=== PATIENT | male | born 1945 | race Caucasian/White ===

== ENCOUNTER 2022-03-02 18:48 | Outpatient (REF) | payer MEDICARE, SELFPAY ==
[2022-03-02 22:18] LABS: HCT 48.1 % (40.0-50.0); HGB 15.4 g/dL (13.5-17.5); MCH 29.6 pg (27.0-33.0); MCV 93 fL (80-95); MPV 10.4 fL (8.0-11.0); Platelet Count 343 10^3/uL (130-400); RDW-SD 50.8 fL; WBC 8.62 10^3/uL (4.4-10.8)
[2022-03-02 22:35] LABS: Hemoglobin A1C 5.9 % (<5.7)
[2022-03-02 23:24] LABS: ALT 61 U/L (16-63); AST 53 U/L (15-37); Albumin 3.3 g/dL (3.4-5.0); Alkaline Phosphatase 104 U/L (46-116); Anion Gap 9.7 mmol/L (3-11); BUN 20 mg/dL (7-18); Bilirubin, Total 0.5 mg/dL (0.2-1.0); CO2 25.3 mmol/L (21.0-32.0); CREATININE 1.1 mg/dL (0.70-1.30); Calcium 8.7 mg/dL (8.5-10.1); Calculated LDL 114 mg/dL (<100); Chloride 105 mmol/L (98-107); Cholesterol 167 mg/dL (<200); Glucose 94 mg/dL (74-106); HDL Cholesterol 39 mg/dL (40-60); Potassium 4.6 mmol/L (3.5-5.1); Sodium 140 mmol/L (136-145); Total Protein 6.4 g/dL (6.4-8.2); Triglyceride 71 mg/dL (<150)
== END 2022-03-02 18:49 | disposition home or self-care (01) ==
LOC: NCHCN 18:48
PROVIDERS: Visit Provider Nurse Practitioner Family
DX: I48.91 Unspecified atrial fibrillation (principal); R73.09 Other abnormal glucose; E78.79 Other disorders of bile acid and cholesterol metabolism
CPT/HCPCS: 80053; 80061; 85027; 83036

== ENCOUNTER 2022-03-18 17:24 | Outpatient (REF) | payer MEDICARE, SELFPAY ==
[2022-03-18 16:11] LABS: Anion Gap 6.2 mmol/L (3-11); BUN 20 mg/dL (7-18); CO2 28.8 mmol/L (21.0-32.0); Chloride 102 mmol/L (98-107); Glucose 97 mg/dL (74-106); Potassium 4.7 mmol/L (3.5-5.1); Sodium 137 mmol/L (136-145)
== END 2022-03-18 17:25 | disposition home or self-care (01) ==
LOC: LBN 17:24
DX: I50.20 Unspecified systolic (congestive) heart failure (principal)
CPT/HCPCS: 80048

== ENCOUNTER 2023-03-06 18:41 | Outpatient (REF) | payer MEDICARE, SELFPAY ==
[2023-03-06 16:48] LABS: HCT 47.2 % (40.0-50.0); HGB 16.3 g/dL (13.5-17.5); MCH 30.4 pg (27.0-33.0); MCHC 34.5 % (32.0-36.0); MCV 88 fL (80-95); MPV 10.2 fL (8.0-11.0); Platelet Count 349 10^3/uL (130-400); RBC 5.36 10^6/uL (4.36-5.78); RDW 12.3 % (11.8-14.1); RDW-SD 39.9 fL; WBC 8.32 10^3/uL (4.4-10.8)
[2023-03-06 17:23] LABS: Anion Gap 10.2 mmol/L (3-11); BUN 16 mg/dL (7-18); CO2 24.8 mmol/L (21.0-32.0); CREATININE 1.2 mg/dL (0.70-1.30); Calcium 9.7 mg/dL (8.5-10.1); Chloride 103 mmol/L (98-107); Estimated GFR 63.07 (mL/min/1.73m2); Glucose 94 mg/dL (74-106); Potassium 4.6 mmol/L (3.5-5.1); Sodium 138 mmol/L (136-145)
[2023-03-06 17:25] LABS: Hemoglobin A1C 5.9 % (<5.7)
--- OUTSIDE RECORDS SUMMARY | 2023-03-06 18:53 | XMS_ITS | CCD ---
Author Name Unknown Address [address] [place] [address] [id number] Organization Unknown Address [address] [place] [address] [phone] Care Team Providers Care Bank Secrecy Act Officer Name Role Phone BISI YEH Attending Physician [phone] JESUS HEWITT Er Physician [phone] JESUS HEWITT Rounding (Secondary) Physician [phone] JES Bee Registered Nurse [phone] PAULINO Bee Registered Nurse [phone] Vital Signs Vital Sign Value Unit Date/Time Recent/Initial ? Weight Measured 174.61 lbs 02/27/2022 11:45 Ini tial VS BP Systolic 150 mmHg 02/27/2022 11:45 Initial VS BP Diastolic 97 mmHg 02/27/2022 11:45 Initia l VS Respiratory Rate 22 bpm 02/27/2022 11:45 In itial VS Heart Rate 86 bpm 02/27/2022 11:45 Initial VS O2 % BldC Oximetry 95 % 02/27/2022 11:45 Initial VS Body Temperature 36 degrees 02/27/2022 11:45 In itial VS Weight Measured 169.6 lbs 02/28/2022 06:37 Mos t Recent VS BP Systolic 139 mmHg 02/28/2022 07:42 Most Re cent VS BP Diastolic 99 mmHg 02/28/2022 07:42 Most R ecent VS Respiratory Rate 16 bpm 02/28/2022 07:[address] Recent VS Heart Rate 92 bpm 02/28/2022 07:42 Most Rec ent VS O2 % BldC Oximetry 98 % 02/28/2022 07:42 Most Recent VS Body Temperature 36.2 degrees 02/28/2022 07:[address] Recent VS Allergies Allergy Code Allergy Type Reaction Status No Known Allergies 0 No known allergies Active Procedures Unknown or Not Available. History of Immunizations Unknown or Not Available. Problems Problem Code Start Date Resolved Date Status Atrial fibrillation 61035350 Activ e Left ventricular systolic dysfunction [id number] Active Acute CHF 32235866 Active Tachycardia 8216720 02/27/2022 Resolved Pleural effusion 61532832 02/27/2022 Resolved Results BASIC METABOLIC PANEL (BMP) - Collect Date/Time: 02/28/2022 06:40 Test Name Code Test Result Test Units Test Ref Rang e GLUCOSE 2345-7 90 mg/dL L=70 H=116 BUN 3094-0 18 mg/dL L=6 H=25 CREATININE 2160-0 1.06 mg/dL L=0.67 H=1.17 SODIUM SERUM 2951-2 134 mmol/L L=136 H=145 POTASSIUM SERUM 2823-3 3.8 mmol/L L=3.4 H=5 .2 CHLORIDE SERUM 2075-0 99 mmol/L L=96 H=110 CARBON DIOXIDE (CO2) 2028-9 27 mmol/L L=22 H=34 ANION GAP 34030-6 7.9 mmol/L CALCIUM SERUM 47988-9 9.0 mg/dL L=8.2 H=10. 2 AGE 76 years eGFR (non-Afr.Amer.) 16546-9 68 mL/min eGFR (Afr-Mauritian) 21127-4 83 mL/min BNP (PRO-B NATRIURETIC PEPTI DE) - Collect Date/Time: 02/27/2022 11:40 Test Name Code Test Result Test Units Test Ref Rang e NT-proBNP 49888-4 9430.0 pg/mL L=0.0 H=125 COMPREHENSIVE METABOLIC PANE L (CMP) - Collect Date/Time: 02/27/2022 11:40 Test Name Code Test Result Test Units Test Ref Rang e GLUCOSE 2345-7 110 mg/dL L=70 H=116 BUN 3094-0 24 mg/dL L=6 H=25 CREATININE 2160-0 1.11 mg/dL L=0.67 H=1.17 SODIUM SERUM 2951-2 128 mmol/L L=136 H=145 POTASSIUM SERUM 2823-3 4.8 mmol/L L=3.4 H=5 .2 CHLORIDE SERUM 2075-0 95 mmol/L L=96 H=110 CARBON DIOXIDE (CO2) 2028-9 24 mmol/L L=22 H=34 ANION GAP 25425-0 8.8 mmol/L CALCIUM SERUM 03462-1 8.8 mg/dL L=8.2 H=10. 2 BILIRUBIN TOTAL 1975-2 0.8 mg/dL L=0.0 H=1 .3 ALK. PHOS. 6768-6 103 U/L L=46 H=116 SGOT (AST) 1920-8 63 U/L L=15 H=37 SGPT (ALT) 1742-6 64 U/L L=12 H=78 TOTAL PROTEIN 2885-2 6.6 gm/dL L=6.0 H=8.0 ALBUMIN 1751-7 3.1 gm/dL L=3.4 H=5.0 AGE 76 years eGFR (non-Afr.Amer.) 79820-6 65 mL/min eGFR (Afr-Mauritian) 58323-7 78 mL/min TROPONIN HIGH SENSITIVITY* - Collect Date/Time: 02/28/2022 06:40 Test Name Code Test Result Test Units Test Ref Rang e TROPONIN HS 28.3 pg/mL L=0.0 H=60.4 Specimen seq. Random N/A TROPONIN HIGH SENSITIVITY* - Collect Date/Time: 02/27/2022 15:00 Test Name Code Test Result Test Units Test Ref Rang e TROPONIN HS 25.5 pg/mL L=0.0 H=60.4 Specimen seq. 3 hr N/A TROPONIN HIGH SENSITIVITY* - Collect Date/Time: 02/27/2022 11:40 Test Name Code Test Result Test Units Test Ref Rang e TROPONIN HS 27.2 pg/mL L=0.0 H=60.4 Specimen seq. Random N/A CBC W/ DIFFERENTIAL* - [facility] ct Date/Time: 02/28/2022 06:40 Test Name Code Test Result Test Units Test Ref Rang e WBC 6690-2 7.84 th/cmm L=5.00 H=10.00 NEUT % 67.9 % L=40.0 H=80.0 LYMPH % 19.4 % L=10.0 H=50.0 MONO % 36958-0 9.8 % L=2.0 H=12.0 EOS % 1.7 % L=0.0 H=8.0 BASO % 0.9 % L=0.0 H=3.0 IG % 2514-8 0.3 % L=0.0 H=1.1 NRBC % 72337-6 0.0 % L=0.0 H=0.0 NEUT abs count 751-8 5.3 th/cmm L=1.6 H=8. 4 LYMPH abs count 731-0 1.5 th/cmm L=1.5 H=4 .0 MONO abs count 742-7 0.8 th/cmm L=0.2 H=1. 0 EOS abs count 711-2 0.1 th/cmm L=0.0 H=0.5 BASO abs count 704-7 0.1 th/cmm L=0.0 H=0. 2 IG abs count 98671-8 0.0 th/cmm L=0.0 H=0.1 NRBC abs count 31039-1 0.0 mil/cmm L=0.0 H=0. 0 RBC 789-8 5.05 mil/cmm L=4.30 H=6.20 HEMOGLOBIN 718-7 15.3 gm/dL L=13.0 H=17.0 HEMATOCRIT 4544-3 45 % L=45 H=52 MCV 787-2 89 fL L=82 H=92 MCH 785-6 30.3 pg L=27.0 H=31.0 MCHC 786-4 34.2 % L=32.0 H=36.0 RDW-SD 788-0 45.8 fL L=39.0 H=49.0 PLATELET COUNT 777-3 393 th/cmm L=150 H=45 0 CBC W/ DIFFERENTIAL* - [facility] Date/Time: 02/27/2022 11:40 Test Name Code Test Result Test Units Test Ref Rang e WBC 6690-2 10.93 th/cmm L=5.00 H=10.00 NEUT % 76.5 % L=40.0 H=80.0 LYMPH % 13.0 % L=10.0 H=50.0 MONO % 19416-1 8.6 % L=2.0 H=12.0 EOS % 1.0 % L=0.0 H=8.0 BASO % 0.5 % L=0.0 H=3.0 IG % 2514-8 0.4 % L=0.0 H=1.1 NRBC % 73870-4 0.0 % L=0.0 H=0.0 NEUT abs count 751-8 8.4 th/cmm L=1.6 H=8. 4 LYMPH abs count 731-0 1.4 th/cmm L=1.5 H=4 .0 MONO abs count 742-7 0.9 th/cmm L=0.2 H=1. 0 EOS abs count 711-2 0.1 th/cmm L=0.0 H=0.5 BASO abs count 704-7 0.1 th/cmm L=0.0 H=0. 2 IG abs count 00489-6 0.0 th/cmm L=0.0 H=0.1 NRBC abs count 79029-7 0.0 mil/cmm L=0.0 H=0. 0 RBC 789-8 5.33 mil/cmm L=4.30 H=6.20 HEMOGLOBIN 718-7 16.3 gm/dL L=13.0 H=17.0 HEMATOCRIT 4544-3 48 % L=45 H=52 MCV 787-2 90 fL L=82 H=92 MCH 785-6 30.6 pg L=27.0 H=31.0 MCHC 786-4 34.2 % L=32.0 H=36.0 RDW-SD 788-0 45.4 fL L=39.0 H=49.0 PLATELET COUNT 777-3 403 th/cmm L=150 H=45 0 UZMA COVID RHEONIX* - [place] ect Date/Time: 02/27/2022 15:00 Test Name Code Test Result Test Units Test Ref Rang e Tier- 05832-5 INPATIENT/ED N/A SARS COV2 RNA: 61780-2 NEGATIVE N/A REFERENCE RANGE: NEGAT Active Medications Medications Administered During Visit Medication Dose Units Frequency Route Date/Time of Last Dose FUROSEMIDE INJ SDV: 20MG/2ML 20 MG X1 IVP 02/27/2022 13:4 9 SODIUM CHLORIDE 0.9% FLUSH 10ML SYRINGE 2 ML Q8H IVP 02/28/2022 05:5 3 FUROSEMIDE INJ SDV: 20MG/2ML 20 MG BID (0800 AND 1459) IVP 02/29/20 08:24 METOPROLOL TARTRATE TABLET: 25MG 75 MG BID PO 02/28/2022 08:2 4 AZITHROMYCIN IVPB: 500MG/250ML 500 MG X1 02/27/2022 18:3 9 CefTRIAXone IVPB: 1GM/50ML 1 GM X1 02/27/2022 16:57 Encounters Encounter Diagnosis Diagnosis Code Start Date Acute on chronic systolic (congestive) heart macie adan I5023 02/27/2022 Social History Smoking Status Code Start Date End Date Former smoker [id number] Patient Decision Aids Patient Decision Aid Heart Failure Discharge Instructions You were admitted to [facility] on 02/27/2022 14:33 with a principal diagnosis of Acute on chronic systolic (congestive) heart failure You had the following tests done:BASIC METABOLIC PANEL (BMP)CBC W/ DIFFERENTIAL*TROPONIN HIGH SENSITIVITY*UZMA COVID RHEONIX*TROPONIN HIGH SENSITIVITY*BNP (PRO-B NATRIURETIC PEPTIDE)CBC W/ DIFFERENTIAL*COMPREHENSIVE METABOLIC PANEL (CMP)TROPONIN HIGH SENSITIVITY* You were discharged from [facility] on 02/28/2022 11:20 Should you have any questions prior to discharge, please contact a member of your healthcare team. If you have left the hospital and have any questions, please contact your primary care physician. Chief Complaint and Reason For Visit Chief Complaint Date of Onset CHF 02/27/2022 Function Status Description Code Date Type Status No Cognitive Impairments 90620376 Functional Active Plan of Care Unknown or Not Available. Referral/Transition of Care Unknown or Not Available.
--- OUTSIDE RECORDS SUMMARY | 2023-03-06 18:53 | XMS_ITS | CCD ---
Author Name Unknown Address [address] [place] [address] [phone] Organization Unknown Address [address] [place] [address] [id number] Care Team Providers Care Steam Oven Operator Name Role Phone BISI YEH Attending Physician [phone] WILLIAM ROSS Er Physician [phone] WILLIAM ROSS Rounding (Secondary) Physician 8 [phone] JOSE ANTONIO Zelaya Registered Nurse [phone] Vital Signs Vital Sign Value Unit Date/Time Recent/Initial ? BP Systolic 148 mmHg 02/23/2022 10:37 Initial VS BP Diastolic 130 mmHg 02/23/2022 10:37 Initia l VS Respiratory Rate 24 bpm 02/23/2022 10:37 In itial VS Heart Rate 150 bpm 02/23/2022 10:37 Initial VS O2 % BldC Oximetry 94 % 02/23/2022 10:37 Initial VS BMI (Body Mass Index) 27.15 kg/m^2 02/23/2022 10: 48 Initial VS Weight Measured 178.57 lbs 02/23/2022 10:48 Ini tial VS Height 68 in 02/23/2022 10:48 Initial VS BSA (Body Surface Area) 1.97 m^2 02/23/2022 1 0:48 Initial VS Body Temperature 36.2 degrees 02/23/2022 10:54 In itial VS Weight Measured 171.5 lbs 02/24/2022 07:45 Mos t Recent VS BP Systolic 101 mmHg 02/25/2022 11:38 Most Re cent VS BP Diastolic 77 mmHg 02/25/2022 11:38 Most R ecent VS Respiratory Rate 20 bpm 02/25/2022 11:[address] Recent VS Heart Rate 65 bpm 02/25/2022 11:38 Most Rec ent VS O2 % BldC Oximetry 98 % 02/25/2022 11:38 Most Recent VS Body Temperature 36 degrees 02/25/2022 11:[address] Recent VS Allergies Allergy Code Allergy Type Reaction Status No Known Allergies 0 No known allergies Active Procedures Unknown or Not Available. History of Immunizations Unknown or Not Available. Problems Problem Code Start Date Resolved Date Status Atrial fibrillation 62056403 Activ e Left ventricular systolic dysfunction 412735540 Active Acute CHF 72811004 Active Tachycardia 1869606 02/27/2022 Resolved Pleural effusion 60113317 02/27/2022 Resolved Results BASIC METABOLIC PANEL (BMP) - Collect Date/Time: 02/25/2022 06:10 Test Name Code Test Result Test Units Test Ref Rang e GLUCOSE 2345-7 97 mg/dL L=70 H=116 BUN 3094-0 21 mg/dL L=6 H=25 CREATININE 2160-0 1.04 mg/dL L=0.67 H=1.17 SODIUM SERUM 2951-2 133 mmol/L L=136 H=145 POTASSIUM SERUM 2823-3 4.8 mmol/L L=3.4 H=5 .2 CHLORIDE SERUM 2075-0 100 mmol/L L=96 H=110 CARBON DIOXIDE (CO2) 2028-9 25 mmol/L L=22 H=34 ANION GAP 48506-0 7.7 mmol/L CALCIUM SERUM 31341-0 8.6 mg/dL L=8.2 H=10. 2 AGE 76 years eGFR (non-Afr.Amer.) 21098-8 70 mL/min eGFR (Afr-Barbadian) 75689-9 84 mL/min BASIC METABOLIC PANEL (BMP) - Collect Date/Time: 02/24/2022 06:50 Test Name Code Test Result Test Units Test Ref Rang e GLUCOSE 2345-7 133 mg/dL L=70 H=116 BUN 3094-0 24 mg/dL L=6 H=25 CREATININE 2160-0 1.26 mg/dL L=0.67 H=1.17 SODIUM SERUM 2951-2 133 mmol/L L=136 H=145 POTASSIUM SERUM 2823-3 4.6 mmol/L L=3.4 H=5 .2 CHLORIDE SERUM 2075-0 99 mmol/L L=96 H=110 CARBON DIOXIDE (CO2) 2028-9 24 mmol/L L=22 H=34 ANION GAP 44674-4 10.5 mmol/L CALCIUM SERUM 39846-0 9.2 mg/dL L=8.2 H=10. 2 AGE 76 years eGFR (non-Afr.Amer.) 72727-7 56 mL/min eGFR (Afr-Barbadian) 72660-6 68 mL/min COMPREHENSIVE METABOLIC PANE L (CMP) - Collect Date/Time: 02/23/2022 11:00 Test Name Code Test Result Test Units Test Ref Rang e GLUCOSE 2345-7 117 mg/dL L=70 H=116 BUN 3094-0 21 mg/dL L=6 H=25 CREATININE 2160-0 1.03 mg/dL L=0.67 H=1.17 SODIUM SERUM 2951-2 136 mmol/L L=136 H=145 POTASSIUM SERUM 2823-3 4.7 mmol/L L=3.4 H=5 .2 CHLORIDE SERUM 2075-0 100 mmol/L L=96 H=110 CARBON DIOXIDE (CO2) 2028-9 23 mmol/L L=22 H=34 ANION GAP 46491-7 12.9 mmol/L CALCIUM SERUM 63813-6 9.5 mg/dL L=8.2 H=10. 2 BILIRUBIN TOTAL 1975-2 0.9 mg/dL L=0.0 H=1 .3 ALK. PHOS. 6768-6 109 U/L L=46 H=116 SGOT (AST) 1920-8 46 U/L L=15 H=37 SGPT (ALT) 1742-6 52 U/L L=12 H=78 TOTAL PROTEIN 2885-2 7.6 gm/dL L=6.0 H=8.0 ALBUMIN 1751-7 3.5 gm/dL L=3.4 H=5.0 AGE 76 years eGFR (non-Afr.Amer.) 88190-6 71 mL/min eGFR (Afr-Barbadian) 48989-1 85 mL/min TROPONIN HIGH SENSITIVITY* - Collect Date/Time: 02/23/2022 11:00 Test Name Code Test Result Test Units Test Ref Rang e TROPONIN HS 48.6 pg/mL L=0.0 H=60.4 Specimen seq. Random N/A TSH THYROID STIMULATING HORM ONE* - Collect Date/Time: 02/24/2022 06:50 Test Name Code Test Result Test Units Test Ref Rang e TSH 3014-8 2.855 uIU/mL L=0.360 H=3.74 0 CBC W/ DIFFERENTIAL* - [facility] ct Date/Time: 02/25/2022 06:10 Test Name Code Test Result Test Units Test Ref Rang e WBC 6690-2 8.18 th/cmm L=5.00 H=10.00 NEUT % 67.8 % L=40.0 H=80.0 LYMPH % 20.8 % L=10.0 H=50.0 MONO % 33305-7 9.2 % L=2.0 H=12.0 EOS % 1.5 % L=0.0 H=8.0 BASO % 0.6 % L=0.0 H=3.0 IG % 2514-8 0.1 % L=0.0 H=1.1 NRBC % 50837-2 0.0 % L=0.0 H=0.0 NEUT abs count 751-8 5.6 th/cmm L=1.6 H=8. 4 LYMPH abs count 731-0 1.7 th/cmm L=1.5 H=4 .0 MONO abs count 742-7 0.8 th/cmm L=0.2 H=1. 0 EOS abs count 711-2 0.1 th/cmm L=0.0 H=0.5 BASO abs count 704-7 0.1 th/cmm L=0.0 H=0. 2 IG abs count 81373-5 0.0 th/cmm L=0.0 H=0.1 NRBC abs count 75171-0 0.0 mil/cmm L=0.0 H=0. 0 RBC 789-8 4.95 mil/cmm L=4.30 H=6.20 HEMOGLOBIN 718-7 15.0 gm/dL L=13.0 H=17.0 HEMATOCRIT 4544-3 44 % L=45 H=52 MCV 787-2 90 fL L=82 H=92 MCH 785-6 30.3 pg L=27.0 H=31.0 MCHC 786-4 33.8 % L=32.0 H=36.0 RDW-SD 788-0 46.2 fL L=39.0 H=49.0 PLATELET COUNT 777-3 384 th/cmm L=150 H=45 0 CBC W/ DIFFERENTIAL* - [facility] ct Date/Time: 02/24/2022 06:50 Test Name Code Test Result Test Units Test Ref Rang e WBC 6690-2 8.00 th/cmm L=5.00 H=10.00 NEUT % 66.6 % L=40.0 H=80.0 LYMPH % 21.8 % L=10.0 H=50.0 MONO % 98926-8 9.1 % L=2.0 H=12.0 EOS % 1.3 % L=0.0 H=8.0 BASO % 0.8 % L=0.0 H=3.0 IG % 2514-8 0.4 % L=0.0 H=1.1 NRBC % 35391-6 0.0 % L=0.0 H=0.0 NEUT abs count 751-8 5.3 th/cmm L=1.6 H=8. 4 LYMPH abs count 731-0 1.7 th/cmm L=1.5 H=4 .0 MONO abs count 742-7 0.7 th/cmm L=0.2 H=1. 0 EOS abs count 711-2 0.1 th/cmm L=0.0 H=0.5 BASO abs count 704-7 0.1 th/cmm L=0.0 H=0. 2 IG abs count 68872-0 0.0 th/cmm L=0.0 H=0.1 NRBC abs count 91230-6 0.0 mil/cmm L=0.0 H=0. 0 RBC 789-8 4.97 mil/cmm L=4.30 H=6.20 HEMOGLOBIN 718-7 15.2 gm/dL L=13.0 H=17.0 HEMATOCRIT 4544-3 44 % L=45 H=52 MCV 787-2 89 fL L=82 H=92 MCH 785-6 30.6 pg L=27.0 H=31.0 MCHC 786-4 34.2 % L=32.0 H=36.0 RDW-SD 788-0 46.5 fL L=39.0 H=49.0 PLATELET COUNT 777-3 389 th/cmm L=150 H=45 0 CBC W/ DIFFERENTIAL* - [facility] ct Date/Time: 02/23/2022 11:00 Test Name Code Test Result Test Units Test Ref Rang e WBC 6690-2 9.55 th/cmm L=5.00 H=10.00 NEUT % 76.9 % L=40.0 H=80.0 LYMPH % 14.0 % L=10.0 H=50.0 MONO % 03529-0 7.3 % L=2.0 H=12.0 EOS % 0.9 % L=0.0 H=8.0 BASO % 0.6 % L=0.0 H=3.0 IG % 2514-8 0.3 % L=0.0 H=1.1 NRBC % 53777-0 0.0 % L=0.0 H=0.0 NEUT abs count 751-8 7.3 th/cmm L=1.6 H=8. 4 LYMPH abs count 731-0 1.3 th/cmm L=1.5 H=4 .0 MONO abs count 742-7 0.7 th/cmm L=0.2 H=1. 0 EOS abs count 711-2 0.1 th/cmm L=0.0 H=0.5 BASO abs count 704-7 0.1 th/cmm L=0.0 H=0. 2 IG abs count 08945-9 0.0 th/cmm L=0.0 H=0.1 NRBC abs count 58643-2 0.0 mil/cmm L=0.0 H=0. 0 RBC 789-8 5.29 mil/cmm L=4.30 H=6.20 HEMOGLOBIN 718-7 16.1 gm/dL L=13.0 H=17.0 HEMATOCRIT 4544-3 48 % L=45 H=52 MCV 787-2 90 fL L=82 H=92 MCH 785-6 30.4 pg L=27.0 H=31.0 MCHC 786-4 33.8 % L=32.0 H=36.0 RDW-SD 788-0 47.4 fL L=39.0 H=49.0 PLATELET COUNT 777-3 395 th/cmm L=150 H=45 0 PT PROTHROMBIN TIME* - [facility] ct Date/Time: 02/23/2022 12:05 Test Name Code Test Result Test Units Test Ref Rang rene PROTIME 5902-2 11.4 seconds L=9.3 H=11.4 INR 91894-1 1.15 L=2.00 H=3.00 PTT PARTIAL THROMBOPLASTIN T ANG* - Collect Date/Time: 02/23/2022 12:05 Test Name Code Test Result Test Units Test Ref Rang e PTT 84003-5 24 seconds L=24 H=32 Active Medications Medications Administered During Visit Medication Dose Units Frequency Route Date/Time of Last Dose DILTIAZEM INJ SDV: 25MG/5ML 10 MG X1 IV P 02/23/2022 11:17 DILTIAZEM DRIP IN NS: 1MG/1ML 10 MG CONT 02/23/2022 11:18 SODIUM CHLORIDE 0.9% FLUSH 1 0ML SYRINGE 2 ML Q8H IVP 02/24/2022 13:3 9 DOCUSATE SODIUM CAPSULE: 100MG 100 MG BID PO 02/24/2022 07:36 METOPROLOL TARTRATE TABLET: 25MG 25 MG X1 PO 02/23/2022 19:00 RIVAROXABAN TAB: 10MG 20 MG Q5PM PO 02/25/2022 16:00 FUROSEMIDE INJ SDV: 20MG/2ML 20 MG X1 I PHYSICIAN UNDERWRITER 02/23/2022 22:38 LORazepam TABLET: 0.5MG 0.5 MG PRN Q6H PO 02/24/2022 21:54 RIVAROXABAN TAB: 10MG 20 MG X1 PO 02/23/2022 23:27 METOPROLOL SUCCINATE TABLET ER: 25MG 25 MG DAILY PO 02/24/2022 07:3 6 METOPROLOL TARTRATE TABLET: 25MG 25 MG X1 PO 02/24/2022 01:16 METOPROLOL TARTRATE INJ SDV: 5MG/5ML 2.5 MG PRN Q4H IVP 02/24/2022 05:2 8 METOPROLOL SUCCINATE TABLET ER: 25MG 25 MG X1 PO 02/24/2022 08:5 2 METOPROLOL TARTRATE INJ SDV: 5MG/5ML 5 MG X1 IVP 02/24/2022 08:5 2 METOPROLOL TARTRATE TABLET: 25MG 25 MG X1 PO 02/24/2022 12:54 METOPROLOL TARTRATE INJ SDV: 5MG/5ML 5 MG X1 IVP 02/24/2022 12:5 4 DIGOXIN INJ AMPULE: 0.5MG/2ML 0.5 MG X1 IVP 02/24/2022 16:51 METOPROLOL TARTRATE TABLET: 25MG 75 MG BID PO 02/25/2022 16:00 Encounters Encounter Diagnosis Diagnosis Code Start Date Chronic atrial fibrillation, unspecified I4820 02/24/2022 Social History Smoking Status Code Start Date End Date Former smoker [id number] Patient Decision Aids Unknown or Not Available. Discharge Instructions You were admitted to [facility] on 02/24/2022 14:35 with a principal diagnosis of Specified Heart Arrhythmias You had the following tests done:BASIC METABOLIC PANEL (BMP)CBC W/ DIFFERENTIAL*BASIC METABOLIC PANEL (BMP)CBC W/ DIFFERENTIAL*TSH THYROID STIMULATING HORMONE*PT PROTHROMBIN TIME*PTT PARTIAL THROMBOPLASTIN TIME*CBC W/ DIFFERENTIAL*COMPREHENSIVE METABOLIC PANEL (CMP)TROPONIN HIGH SENSITIVITY* You were discharged from [facility] on 02/25/2022 15:55 Should you have any questions prior to discharge, please contact a member of your healthcare team. If you have left the hospital and have any questions, please contact your primary care physician. Chief Complaint and Reason For Visit Chief Complaint Date of Onset ATRIAL FIBRILLATION 02/23/2022 Function Status Description Code Date Type Status No Cognitive Impairments 80912213 Functional Active Plan of Care Unknown or Not Available. Referral/Transition of Care Unknown or Not Available.
--- OUTSIDE RECORDS SUMMARY | 2023-03-06 18:53 | XMS_ITS | CCD ---
Author Name Unknown Address [address] [place] [address] [phone] Organization Unknown Address [address] [place] [address] [phone] Care Team Providers Care Postmaster Relief Name Role Phone ANA MENA Attending Physician [phone] ANA MENA Rounding (Secondary) Physician [phone] Vital Signs Unknown or Not Available. Allergies Allergy Code Allergy Type Reaction Status No Known Allergies 0 No known allergies Active Procedures Unknown or Not Available. History of Immunizations Unknown or Not Available. Problems Problem Code Start Date Resolved Date Status Atrial fibrillation 41954795 Activ e Left ventricular systolic dysfunction 484339641 Active Acute CHF 40240422 Active Results Unknown or Not Available. Active Medications Medication Code Dose Units Frequency Route Modificatio n Start Date/Time Furosemide 20MG Oral Tablet 965800 1 TABLET MON/WED/FRI ORAL 2021 09:27 Prescription Detail TAKE 1 TABLET ORAL MON/WED/FRI Xarelto 20MG Oral Tablet 7842833 20 MILLIGRAMS DAILY ORAL 022 09:26 Prescription Detail TAKE 20 MILLIGRAMS ORAL DAILY Metoprolol Tartrate 25MG Oral Tablet 344772 75 MILLIGRAMS TWICE A DAY ORAL 02/25 13:26 Prescription Detail TAKE 75 MILLIGRAMS ORAL TWICE A DAY Medications Administered During Visit Unknown or Not Available. Encounters Encounter Diagnosis Diagnosis Code Start Date Other persistent atrial fibrillation I4819 03/10/2022 Social History Smoking Status Code Start Date End Date Former smoker [id number] Patient Decision Aids Unknown or Not Available. Discharge Instructions You were admitted to [facility] on 03/10/2022 09:51 with a principal diagnosis of Other persistent atrial fibrillation You were discharged from [facility] on 03/10/2022 00:00 Should you have any questions prior to discharge, please contact a member of your healthcare team. If you have left the hospital and have any questions, please contact your primary care physician. Chief Complaint and Reason For Visit Unknown or Not Available. Function Status Description Code Date Type Status No Cognitive Impairments 65946225 Functional Active Plan of Care Unknown or Not Available. Referral/Transition of Care Unknown or Not Available.
--- OUTSIDE RECORDS SUMMARY | 2023-03-06 18:53 | XMS_ITS | CCD ---
Author Name Unknown Address [address] [place] [address] [phone] Organization Unknown Address [address] [place] [address] [phone] Care Team Providers Care Zigzag Machine Operator Name Role Phone BISI YEH Attending Physician [phone] WILLIAM ROSS (Secondary) Physician [phone] Vital Signs Unknown or Not Available. Allergies Allergy Code Allergy Type Reaction Status No Known Allergies 0 No known allergies Active Procedures Unknown or Not Available. History of Immunizations Unknown or Not Available. Problems Problem Code Start Date Resolved Date Status Atrial fibrillation 95828547 Activ e Left ventricular systolic dysfunction [id number] Active Acute CHF 81566268 Active Tachycardia 2079966 02/27/2022 Resolved Pleural effusion 52012574 02/27/2022 Resolved Results Unknown or Not Available. Active Medications Medication Code Dose Units Frequency Route Modificatio n Start Date/Time Furosemide 20MG Oral Tablet [id number] 1 TABLET MON/WED/FRI ORAL 2021 09:27 Prescription Detail TAKE 1 TABLET ORAL MON/WED/FRI Xarelto 20MG Oral Tablet [id number] 20 MILLIGRAMS DAILY ORAL 022 09:26 Prescription Detail TAKE 20 MILLIGRAMS ORAL DAILY Metoprolol Tartrate 25MG Oral Tablet [id number] 75 MILLIGRAMS TWICE A DAY ORAL 02/25 13:26 Prescription Detail TAKE 75 MILLIGRAMS ORAL TWICE A DAY Medications Administered During Visit Unknown or Not Available. Encounters Encounter Diagnosis Diagnosis Code Start Date Chronic atrial fibrillation 729518697 01/29 Social History Unknown or Not Available. Patient Decision Aids Unknown or Not Available. Discharge Instructions You were admitted to [facility] on 02/23/2022 14:35 with a principal diagnosis of Chronic atrial fibrillation, unspecified You were discharged from [facility] on 02/24/2022 16:32 Should you have any questions prior to discharge, please contact a member of your healthcare team. If you have left the hospital and have any questions, please contact your primary care physician. Chief Complaint and Reason For Visit Unknown or Not Available. Function Status Description Code Date Type Status No Cognitive Impairments [id number] Functional Active Plan of Care Unknown or Not Available. Referral/Transition of Care Unknown or Not Available.
--- OUTSIDE RECORDS SUMMARY | 2023-03-06 18:54 | XMS_ITS | CCD ---
Author Name Unknown Address [address] [place] [address] [phone] Organization Unknown Address [address] [place] [address] [id number] Care Team Providers Care Teletypesetter Name Role Phone ANA MENA Attending Physician [phone] ANA MENA Rounding (Secondary) Physician [phone] Vital Signs Unknown or Not Available. Allergies Allergy Code Allergy Type Reaction Status No Known Allergies 0 No known allergies Active Procedures Unknown or Not Available. History of Immunizations Unknown or Not Available. Problems Problem Code Start Date Resolved Date Status Atrial fibrillation 90693071 Activ e Left ventricular systolic dysfunction 743995951 Active Acute CHF 74474362 Active Results BASIC METABOLIC PANEL (BMP) - Collect Date/Time: 03/22/2022 10:15 Test Name Code Test Result Test Units Test Ref Rang e GLUCOSE 2345-7 98 mg/dL L=70 H=116 BUN 3094-0 19 mg/dL L=6 H=25 CREATININE 2160-0 1.03 mg/dL L=0.67 H=1.17 SODIUM SERUM 2951-2 138 mmol/L L=136 H=145 POTASSIUM SERUM 2823-3 3.8 mmol/L L=3.4 H=5 .2 CHLORIDE SERUM 2075-0 102 mmol/L L=96 H=110 CARBON DIOXIDE (CO2) 2028-9 28 mmol/L L=22 H=34 ANION GAP 91449-6 7.6 mmol/L CALCIUM SERUM 93014-2 9.0 mg/dL L=8.2 H=10. 2 AGE 76 years eGFR (non-Afr.Amer.) 64672-5 71 mL/min eGFR (Afr-Cambodian) 68614-5 85 mL/min Active Medications Medication Code Dose Units Frequency Route Modificatio n Start Date/Time Furosemide 20MG Oral Tablet 056009 1 TABLET MON/MON/FRI ORAL 2021 09:27 Prescription Detail TAKE 1 TABLET ORAL MON/MON/FRI Xarelto 20MG Oral Tablet [id number] 20 MILLIGRAMS DAILY ORAL 022 09:26 Prescription Detail TAKE 20 MILLIGRAMS ORAL DAILY Metoprolol Tartrate 25MG Oral Tablet [id number] 75 MILLIGRAMS TWICE A DAY ORAL 02/25 13:26 Prescription Detail TAKE 75 MILLIGRAMS ORAL TWICE A DAY Medications Administered During Visit Unknown or Not Available. Encounters Encounter Diagnosis Diagnosis Code Start Date Other persistent atrial fibrillation I4819 03/22/2022 Social History Smoking Status Code Start Date End Date Former smoker [id number] Patient Decision Aids Unknown or Not Available. Discharge Instructions You were admitted to [facility] on 03/22/2022 15:31 with a principal diagnosis of Other persistent atrial fibrillation You had the following tests done:BASIC METABOLIC PANEL (BMP) You were discharged from [facility] on 03/22/2022 00:00 Should you have any questions prior to discharge, please contact a member of your healthcare team. If you have left the hospital and have any questions, please contact your primary care physician. Chief Complaint and Reason For Visit Unknown or Not Available. Function Status Description Code Date Type Status No Cognitive Impairments 82140061 Functional Active Plan of Care Unknown or Not Available. Referral/Transition of Care Unknown or Not Available.
--- OUTSIDE RECORDS SUMMARY | 2023-03-06 18:54 | XMS_ITS | CCD ---
Author Name Unknown Address [address] [place] [address] [phone] Organization Unknown Address [address] [place] [address] [phone] Care Team Providers Care Auto Glass Technician Name Role Phone BISI YEH Attending Physician [phone] Vital Signs Unknown or Not Available. Allergies Allergy Code Allergy Type Reaction Status No Known Allergies 0 No known allergies Active Procedures Unknown or Not Available. History of Immunizations Unknown or Not Available. Problems Problem Code Start Date Resolved Date Status Atrial fibrillation 76878337 Activ e Left ventricular systolic dysfunction 278007442 Active Acute CHF 30883426 Active Tachycardia 9588257 02/27/2022 Resolved Pleural effusion 70020069 02/27/2022 Resolved Results Unknown or Not Available. Active Medications Medication Code Dose Units Frequency Route Modificatio n Start Date/Time Furosemide 20MG Oral Tablet 812950 1 TABLET MON/WED/FRI ORAL 2021 09:27 Prescription Detail TAKE 1 TABLET ORAL MON/WED/FRI Xarelto 20MG Oral Tablet [id number] 20 MILLIGRAMS DAILY ORAL 022 09:26 Prescription Detail TAKE 20 MILLIGRAMS ORAL DAILY Metoprolol Tartrate 25MG Oral Tablet [id number] 75 MILLIGRAMS TWICE A DAY ORAL 02/25 13:26 Prescription Detail TAKE 75 MILLIGRAMS ORAL TWICE A DAY Medications Administered During Visit Unknown or Not Available. Encounters Encounter Diagnosis Diagnosis Code Start Date Chronic atrial fibrillation, unspecified I4820 02/23/2022 Social History Smoking Status Code Start Date End Date Former smoker [id number] Patient Decision Aids Unknown or Not Available. Discharge Instructions You were admitted to [facility] on 02/23/2022 11:41 with a principal diagnosis of Chronic atrial fibrillation, unspecified You were discharged from [facility] on 02/25/2022 11:41 Should you have any questions prior to discharge, please contact a member of your healthcare team. If you have left the hospital and have any questions, please contact your primary care physician. Chief Complaint and Reason For Visit Unknown or Not Available. Function Status Description Code Date Type Status No Cognitive Impairments 64003426 Functional Active Plan of Care Unknown or Not Available. Referral/Transition of Care Unknown or Not Available.
--- OUTSIDE RECORDS SUMMARY | 2023-03-06 18:54 | XMS_ITS | CCD ---
Author Name Unknown Address [address] [place] [address] [phone] Organization Unknown Address [address] [place] [address] [phone] Care Team Providers Care School Patrol Name Role Phone ANA MENA Attending Physician [phone] ANA MENA Rounding (Secondary) Physician [phone] Vital Signs Unknown or Not Available. Allergies Allergy Code Allergy Type Reaction Status No Known Allergies 0 No known allergies Active Procedures Unknown or Not Available. History of Immunizations Unknown or Not Available. Problems Problem Code Start Date Resolved Date Status Atrial fibrillation 08616623 Activ e Left ventricular systolic dysfunction 249882071 Active Acute CHF 02672703 Active Results Unknown or Not Available. Active Medications Medication Code Dose Units Frequency Route Modificatio n Start Date/Time Furosemide 20MG Oral Tablet 507037 1 TABLET MON/WED/FRI ORAL 2021 09:27 Prescription Detail TAKE 1 TABLET ORAL MON/WED/FRI Xarelto 20MG Oral Tablet [id number] 20 MILLIGRAMS DAILY ORAL 022 09:26 Prescription Detail TAKE 20 MILLIGRAMS ORAL DAILY Metoprolol Tartrate 25MG Oral Tablet [id number] 75 MILLIGRAMS TWICE A DAY ORAL 02/25 13:26 Prescription Detail TAKE 75 MILLIGRAMS ORAL TWICE A DAY Medications Administered During Visit Unknown or Not Available. Encounters Encounter Diagnosis Diagnosis Code Start Date Other persistent atrial fibrillation I4819 04/26/2022 Social History Smoking Status Code Start Date End Date Former smoker [id number] Patient Decision Aids Unknown or Not Available. Discharge Instructions You were admitted to [facility] on 04/26/2022 09:56 with a principal diagnosis of Other persistent atrial fibrillation You were discharged from [facility] on 04/26/2022 00:00 Should you have any questions prior to discharge, please contact a member of your healthcare team. If you have left the hospital and have any questions, please contact your primary care physician. Chief Complaint and Reason For Visit Unknown or Not Available. Function Status Description Code Date Type Status No Cognitive Impairments 73532926 Functional Active Plan of Care Unknown or Not Available. Referral/Transition of Care Unknown or Not Available.
--- OUTSIDE RECORDS SUMMARY | 2023-03-06 18:54 | XMS_ITS | CCD ---
Author Name Unknown Address [address] [place] [address] [phone] Organization Unknown Address [address] [place] [address] [phone] Care Team Providers Care Mems Process Engineer Name Role Phone ANA MENA Attending Physician [phone] Vital Signs Unknown or Not Available. Allergies Allergy Code Allergy Type Reaction Status No Known Allergies 0 No known allergies Active Procedures Unknown or Not Available. History of Immunizations Unknown or Not Available. Problems Problem Code Start Date Resolved Date Status Atrial fibrillation 22347595 Activ e Left ventricular systolic dysfunction 357510581 Active Acute CHF 97614941 Active Results BASIC METABOLIC PANEL (BMP) - Collect Date/Time: 04/08/2022 12:34 Test Name Code Test Result Test Units Test Ref Rang e GLUCOSE 2345-7 76 mg/dL L=70 H=116 BUN 3094-0 23 mg/dL L=6 H=25 CREATININE 2160-0 1.06 mg/dL L=0.67 H=1.17 SODIUM SERUM 2951-2 137 mmol/L L=136 H=145 POTASSIUM SERUM 2823-3 4.4 mmol/L L=3.4 H=5 .2 CHLORIDE SERUM 2075-0 102 mmol/L L=96 H=110 CARBON DIOXIDE (CO2) 2028-9 24 mmol/L L=22 H=34 ANION GAP 33455-5 11.1 mmol/L CALCIUM SERUM 65485-2 9.3 mg/dL L=8.2 H=10. 2 AGE 76 years eGFR (non-Afr.Amer.) 33324-7 68 mL/min eGFR (Afr-Serbian) 89537-8 83 mL/min Active Medications Medication Code Dose Units Frequency Route Modificatio n Start Date/Time Furosemide 20MG Oral Tablet 732827 1 TABLET MON/WED/FRI ORAL 2021 09:27 Prescription Detail TAKE 1 TABLET ORAL MON/WED/FRI Xarelto 20MG Oral Tablet [id number] 20 MILLIGRAMS DAILY ORAL 022 09:26 Prescription Detail TAKE 20 MILLIGRAMS ORAL DAILY Metoprolol Tartrate 25MG Oral Tablet 970193 75 MILLIGRAMS TWICE A DAY ORAL 02/25 13:26 Prescription Detail TAKE 75 MILLIGRAMS ORAL TWICE A DAY Medications Administered During Visit Unknown or Not Available. Encounters Encounter Diagnosis Diagnosis Code Start Date Systolic heart failure [id number] Social History Smoking Status Code Start Date End Date Former smoker 0568633 Patient Decision Aids Unknown or Not Available. Discharge Instructions You were admitted to [facility] on 04/08/2022 11:55 with a principal diagnosis of Unspecified systolic (congestive) heart failure You had the following tests done:BASIC METABOLIC PANEL (BMP) You were discharged from [facility] on 04/08/2022 11:55 Should you have any questions prior to discharge, please contact a member of your healthcare team. If you have left the hospital and have any questions, please contact your primary care physician. Chief Complaint and Reason For Visit Unknown or Not Available. Function Status Description Code Date Type Status No Cognitive Impairments 99592744 Functional Active Plan of Care Unknown or Not Available. Referral/Transition of Care Unknown or Not Available.
--- OUTSIDE RECORDS SUMMARY | 2023-03-06 18:55 | XMS_ITS | CCD ---
Author Name Unknown Address [address] [place] [address] [phone] Organization Unknown Address [address] [place] [address] [phone] Care Team Providers Care Seo Coordinator Name Role Phone WILLIAM DOUGLAS Attending Physician [phone] WILLIAM DOUGLAS Rounding (Secondary) Physician [phone] Vital Signs Unknown or Not Available. Allergies Allergy Code Allergy Type Reaction Status No Known Allergies 0 No known allergies Active Procedures Unknown or Not Available. History of Immunizations Unknown or Not Available. Problems Problem Code Start Date Resolved Date Status Atrial fibrillation 63331254 Activ e Left ventricular systolic dysfunction 884073407 Active Acute CHF 06860936 Active Results Unknown or Not Available. Active Medications Medication Code Dose Units Frequency Route Modificatio n Start Date/Time Furosemide 20MG Oral Tablet 214922 1 TABLET MON/WED/FRI ORAL 2021 09:27 Prescription Detail TAKE 1 TABLET ORAL MON/WED/FRI Xarelto 20MG Oral Tablet [id number] 20 MILLIGRAMS DAILY ORAL 022 09:26 Prescription Detail TAKE 20 MILLIGRAMS ORAL DAILY Metoprolol Tartrate 25MG Oral Tablet 889816 75 MILLIGRAMS TWICE A DAY ORAL 02/25 13:26 Prescription Detail TAKE 75 MILLIGRAMS ORAL TWICE A DAY Medications Administered During Visit Unknown or Not Available. Encounters Encounter Diagnosis Diagnosis Code Start Date Abnormal findings on diagnos tic imaging of heart and coronary circulation R931 06/06/2022 Social History Smoking Status Code Start Date End Date Former smoker 4828804 Patient Decision Aids Unknown or Not Available. Discharge Instructions You were admitted to [facility] on 06/06/2022 13:12 with a principal diagnosis of Abnormal findings on diagnostic imaging of heart and coronary circulation You were discharged from [facility] on 06/06/2022 00:00 Should you have any questions prior to discharge, please contact a member of your healthcare team. If you have left the hospital and have any questions, please contact your primary care physician. Chief Complaint and Reason For Visit Unknown or Not Available. Function Status Description Code Date Type Status No Cognitive Impairments 36278166 Functional Active Plan of Care Unknown or Not Available. Referral/Transition of Care Unknown or Not Available.
--- OUTSIDE RECORDS SUMMARY | 2023-03-06 18:55 | XMS_ITS | CCD ---
Author Name Unknown Address [address] [place] [address] [phone] Organization Unknown Address [address] [place] [address] [phone] Care Team Providers Care Grievance Coordinator Name Role Phone WILLIAM DOUGLAS Attending Physician [phone] Vital Signs Unknown or Not Available. Allergies Allergy Code Allergy Type Reaction Status No Known Allergies 0 No known allergies Active Procedures Unknown or Not Available. History of Immunizations Unknown or Not Available. Problems Problem Code Start Date Resolved Date Status Atrial fibrillation 45758030 Activ e Left ventricular systolic dysfunction 649410678 Active Acute CHF 72956581 Active Results Unknown or Not Available. Active Medications Medication Code Dose Units Frequency Route Modificatio n Start Date/Time Furosemide 20MG Oral Tablet 734258 1 TABLET MON/WED/FRI ORAL 2021 09:27 Prescription Detail TAKE 1 TABLET ORAL MON/WED/FRI Xarelto 20MG Oral Tablet 7931323 20 MILLIGRAMS DAILY ORAL 022 09:26 Prescription Detail TAKE 20 MILLIGRAMS ORAL DAILY Metoprolol Tartrate 25MG Oral Tablet 744401 75 MILLIGRAMS TWICE A DAY ORAL 02/25 13:26 Prescription Detail TAKE 75 MILLIGRAMS ORAL TWICE A DAY Medications Administered During Visit Unknown or Not Available. Encounters Encounter Diagnosis Diagnosis Code Start Date Screening for cardiovascular system disease 3000 62852 12/22/2022 Social History Smoking Status Code Start Date End Date Former smoker 1915578 Patient Decision Aids Unknown or Not Available. Discharge Instructions You were admitted to [facility] on 12/22/2022 08:52 with a principal diagnosis of Encounter for screening for cardiovascular disorders You were discharged from [facility] on 12/22/2022 08:52 Should you have any questions prior to discharge, please contact a member of your healthcare team. If you have left the hospital and have any questions, please contact your primary care physician. Chief Complaint and Reason For Visit Unknown or Not Available. Function Status Description Code Date Type Status No Cognitive Impairments 44067885 Functional Active Plan of Care Unknown or Not Available. Referral/Transition of Care Unknown or Not Available.
--- OUTSIDE RECORDS SUMMARY | 2023-03-06 18:55 | XMS_ITS | CCD ---
Author Name Unknown Address [address] [place] [address] [phone] Organization Unknown Address [address] [place] [address] [phone] Care Team Providers Care Vulcanizer Name Role Phone ANA MENA Attending Physician [phone] ANA MENA Rounding (Secondary) Physician [phone] Vital Signs Unknown or Not Available. Allergies Allergy Code Allergy Type Reaction Status No Known Allergies 0 No known allergies Active Procedures Unknown or Not Available. History of Immunizations Unknown or Not Available. Problems Problem Code Start Date Resolved Date Status Atrial fibrillation 63025846 Activ e Left ventricular systolic dysfunction 704030750 Active Acute CHF 73036116 Active Results Unknown or Not Available. Active Medications Medication Code Dose Units Frequency Route Modificatio n Start Date/Time Furosemide 20MG Oral Tablet 227866 1 TABLET MON/WED/FRI ORAL 2021 09:27 Prescription Detail TAKE 1 TABLET ORAL MON/WED/FRI Xarelto 20MG Oral Tablet 9311415 20 MILLIGRAMS DAILY ORAL 022 09:26 Prescription Detail TAKE 20 MILLIGRAMS ORAL DAILY Metoprolol Tartrate 25MG Oral Tablet 926393 75 MILLIGRAMS TWICE A DAY ORAL 02/25 13:26 Prescription Detail TAKE 75 MILLIGRAMS ORAL TWICE A DAY Medications Administered During Visit Unknown or Not Available. Encounters Encounter Diagnosis Diagnosis Code Start Date Cardiomyopathy, unspecified I429 10/2021 Social History Smoking Status Code Start Date End Date Former smoker 3421783 Patient Decision Aids Unknown or Not Available. Discharge Instructions You were admitted to [facility] on 06/30/2022 09:12 with a principal diagnosis of Cardiomyopathy, unspecified You were discharged from [facility] on 06/30/2022 00:00 Should you have any questions prior to discharge, please contact a member of your healthcare team. If you have left the hospital and have any questions, please contact your primary care physician. Chief Complaint and Reason For Visit Unknown or Not Available. Function Status Description Code Date Type Status No Cognitive Impairments 47437279 Functional Active Plan of Care Unknown or Not Available. Referral/Transition of Care Unknown or Not Available.
--- OUTSIDE RECORDS SUMMARY | 2023-03-06 18:55 | XMS_ITS | CCD ---
Author Name Unknown Address [address] [place] [address] [phone] Organization Unknown Address [address] [place] [address] [phone] Care Team Providers Care Energy Operations Vice President Name Role Phone ANA MENA Attending Physician [phone] ANA MENA Rounding (Secondary) Physician [phone] Vital Signs Unknown or Not Available. Allergies Allergy Code Allergy Type Reaction Status No Known Allergies 0 No known allergies Active Procedures Unknown or Not Available. History of Immunizations Unknown or Not Available. Problems Problem Code Start Date Resolved Date Status Atrial fibrillation 22923305 Activ e Left ventricular systolic dysfunction 181309532 Active Acute CHF 78463727 Active Results Unknown or Not Available. Active Medications Medication Code Dose Units Frequency Route Modificatio n Start Date/Time Furosemide 20MG Oral Tablet 318583 1 TABLET MON/WED/FRI ORAL 2021 09:27 Prescription Detail TAKE 1 TABLET ORAL MON/WED/FRI Xarelto 20MG Oral Tablet 3621278 20 MILLIGRAMS DAILY ORAL 022 09:26 Prescription Detail TAKE 20 MILLIGRAMS ORAL DAILY Metoprolol Tartrate 25MG Oral Tablet 363236 75 MILLIGRAMS TWICE A DAY ORAL 02/25 13:26 Prescription Detail TAKE 75 MILLIGRAMS ORAL TWICE A DAY Medications Administered During Visit Unknown or Not Available. Encounters Encounter Diagnosis Diagnosis Code Start Date Persistent atrial fibrillation [id number] 1 12/05/2021 Social History Smoking Status Code Start Date End Date Former smoker 3452890 Patient Decision Aids Unknown or Not Available. Discharge Instructions You were admitted to [facility] on 10/04/2022 09:40 with a principal diagnosis of Other persistent atrial fibrillation You were discharged from [facility] on 10/04/2022 00:00 Should you have any questions prior to discharge, please contact a member of your healthcare team. If you have left the hospital and have any questions, please contact your primary care physician. Chief Complaint and Reason For Visit Unknown or Not Available. Function Status Description Code Date Type Status No Cognitive Impairments 93077196 Functional Active Plan of Care Unknown or Not Available. Referral/Transition of Care Unknown or Not Available.
== END 2023-03-06 18:42 | disposition home or self-care (01) ==
LOC: NCHCN 18:41
PROVIDERS: Visit Provider Nurse Practitioner Family
DX: R73.03 Prediabetes (principal); Z79.01 Long term (current) use of anticoagulants; I48.91 Unspecified atrial fibrillation
CPT/HCPCS: 80048; 85027; 83036

== ENCOUNTER 2024-07-08 12:54 | Outpatient (REF) | payer MEDICARE, SELFPAY ==
[2024-07-08 14:58] LABS: HCT 45.8 % (40.0-50.0); HGB 15.6 g/dL (13.5-17.5); MCH 30.6 pg (27.0-33.0); MCHC 34.1 % (32.0-36.0); MCV 90 fL (80-95); MPV 10.2 fL (8.0-11.0); Platelet Count 327 10^3/uL (130-400); RBC 5.09 10^6/uL (4.36-5.78); RDW 13.4 % (11.8-14.1); RDW-SD 44.8 fL
[2024-07-08 15:28] LABS: Anion Gap 7.6 mmol/L (3-11); BUN 18 mg/dL (7-18); CO2 27.4 mmol/L (21.0-32.0); CREATININE 1.1 mg/dL (0.70-1.30); Calcium 9.4 mg/dL (8.5-10.1); Calculated LDL 78 mg/dL (<100); Chloride 105 mmol/L (98-107); Cholesterol 153 mg/dL (<200); Estimated GFR 69.57 (mL/min/1.73m2); Glucose 76 mg/dL (74-106); HDL Cholesterol 53 mg/dL (40-60); Potassium 4.5 mmol/L (3.5-5.1); Sodium 140 mmol/L (136-145); Triglyceride 111 mg/dL (<150)
== END 2024-07-08 12:55 | disposition home or self-care (01) ==
LOC: NCHCN 12:54
PROVIDERS: PCP Nurse Practitioner Family; Visit Provider Nurse Practitioner Family
DX: I25.10 Atherosclerotic heart disease of native coronary artery without angina pectoris (principal)
CPT/HCPCS: 80048; 80061; 85027

== ENCOUNTER 2025-05-27 12:20 | Outpatient (REF) | payer MEDICARE, SELFPAY ==
[2025-05-27 16:22] LABS: Anion Gap 6.9 mmol/L (3-11); BUN 15 mg/dL (7-18); CO2 29.1 mmol/L (21.0-32.0); Calcium 9.6 mg/dL (8.5-10.1); Calculated LDL 151 mg/dL (<100); Chloride 101 mmol/L (98-107); Cholesterol 222 mg/dL (<200); Estimated GFR 69.14 (mL/min/1.73m2); Glucose 76 mg/dL (74-106); HDL Cholesterol 45 mg/dL (>or=40); Potassium 4.3 mmol/L (3.5-5.1); Sodium 137 mmol/L (136-145); Triglyceride 134 mg/dL (<150)
[2025-05-27 16:47] LABS: Hemoglobin A1C 5.7 % (<5.7)
== END 2025-05-27 12:21 | disposition home or self-care (01) ==
LOC: NCHCN 12:20
PROVIDERS: PCP Nurse Practitioner Family; Visit Provider Nurse Practitioner Family
DX: R73.03 Prediabetes (principal); I10 Essential (primary) hypertension
CPT/HCPCS: 80048; 80061; 83036